=== PATIENT | female | born 1995 | race Caucasian/White ===

== ENCOUNTER 2020-08-14 14:54 | Emergency (ER) | payer OTHER ==
[2020-08-14] MEDS ORDERED: Lidocaine 1% w/Epinephrine 1:100K 20 ML VIAL ONE (15:57)
--- NOTE | 2020-08-14 17:09 | CT ---
Exam: Head CT without contrast HISTORY: Head trauma. Laceration. COMPARISON: none FINDINGS: Hemorrhage: No intraparenchymal hemorrhage or extra-axial hematoma. Brain parenchyma: Cortical puri-white matter differentiation is preserved. No mass effect or midline shift. Basilar cisterns are patent. Ventricular system: Ventricles and sulci are patent and symmetric. Calvarium: Intact Scalp: There is a frontal scalp hematoma with laceration. Overlying skin maira are identified Sinuses and mastoid air cells: Adequate aeration. IMPRESSION: 1. No acute cranial post traumatic sequelae. 2. Frontal scalp post traumatic change.
== END 2020-08-14 17:32 | disposition home or self-care (01) ==
LOC: ERS 14:54
DX: S01.01XA Laceration without foreign body of scalp, initial encounter (principal); X58.XXXA Exposure to other specified factors, initial encounter
CPT/HCPCS: 12002; 70450